=== PATIENT | female | born 1980 | race Caucasian/White ===

== ENCOUNTER 2016-08-13 07:02 | Emergency (ER) | payer SELFPAY | END 2016-08-13 08:27 | disposition home or self-care (01) | LOC: ER1 07:02 | DX: S59.902A Unspecified injury of left elbow, initial encounter (principal); C85.90 Non-Hodgkin lymphoma, unspecified, unspecified site; X58.XXXA Exposure to other specified factors, initial encounter | CPT/HCPCS: 29105; 99283 ==

== ENCOUNTER → 2021-06-02 | Outpatient (CLI) | payer OTHER ==
[~2021-06-02] MED LIST: ADIPEX-P37.5 M1 PO; BROMFED DM COU473 ML PO; CRESTOR10 MG PO; EXCEDRIN MIGRA1 EACH PO; EXPECTORANT200 MG PO; HYDROCHLOROTHIA25 MG PO; IMITREX100 MG PO; K-DUR TAB 20 M20 MEQ PO; MUPIROCIN22 GM TOP; NEURONTIN400 MG PO; PERCOCET 7.5-31 EACH PO; PHENERGAN 25 MG25 M1 PO; PRILOSEC OTC20 MG PO; SINGULAIR10 MG PO; TAMIFLU75 MG PO; VENTOLIN HFA 66.7 GM INH; Wheelchair; ZYVOX 600 MG T600 MG PO
== END ==
LOC: HEART 5 13:57
DX: R06.02 Shortness of breath (principal)
CPT/HCPCS: 94010

== ENCOUNTER → 2021-06-12 | Outpatient (CLI) | payer OTHER | LOC: HEART 5 15:19 | DX: U07.1 COVID-19 (principal) | CPT/HCPCS: 93306 ==